=== PATIENT | male | born 1970 | race Caucasian/White ===

== ENCOUNTER → 2017-03-02 | Emergency (ER) | payer BC ==
[~2017-03-02] MED LIST: AMOXICILLIN/CLAVULANATE POT 875/125 MG TAB PO ONE; OXYCODONE/APAP 5/325 TAB PO ONE
--- NOTE | 2017-03-02 14:16 | EDPHY ---
H & P Smoking Status: Never smoked Time Seen by Provider: 03/02/17 13:40 HPI/ROS: CHIEF COMPLAINT: Dog bite right wrist HISTORY OF PRESENT ILLNESS: This is a 47-year-old male presenting to the emergency department complaining of a dog bite to right wrist. Patient states his dogs were fighting each other around 12 30, patient stepped in to try and fluid dog's a republican stuck his hand in to the middle of the dogs and was bit by one of them. States both dogs have all vaccines well-appearing, patient not sure if his tetanus is up-to-date he is declining at this time will follow-up with his primary care provider for tetanus status. REVIEW OF SYSTEMS: Constitutional: No fever, no chills. Eyes: No discharge. ENT: No sore throat. Cardiovascular: No chest pain, no palpitations. Respiratory: No cough, no shortness of breath. Gastrointestinal: No abdominal pain, no vomiting. Genitourinary: No hematuria. Musculoskeletal: No back pain. Right wrist pain, laceration Skin: No rashes. Neurological: No headache. (France Owusu) Physical Exam: General Appearance: Alert and no distress. Eyes: Pupils equal and round no injection. Respiratory: Chest is nontender, lungs are clear to auscultation. Cardiac: regular rate and rhythm Gastrointestinal: Abdomen is soft and nontender, no masses, bowel sounds normal. Musculoskeletal: Neck is supple and nontender. Extremities: Right wrist anteriorly 1 cm laceration noted, anterior medial right wrist laceration 3.5 cm noted. Good flexion and extension of digits, No flexor tendon damage noted. Positive CMS intact Skin: No rashes or lesions. (France Owusu) Constitutional: Initial Vital Signs Temperature (C) 36.6 C 03/02/17 13:17 Heart Rate 58 L 03/02/17 13:17 Respiratory Rate 16 03/02/17 13:17 Blood Pressure 164/101 H 03/02/17 13:17 O2 Sat (%) 97 03/02/17 13:17 O2 Delivery Mode Room Air Allergies/Adverse Reactions: No Known Allergies Allergy (Verified 03/02/17 13:15) Home Medications: Medication Instructions Recorded Amoxicillin/Clavulanate Pot 875 mg PO BID #14 tab 03/02/17 [Augmentin 875 MG TAB (*)] oxyCODONE/APAP 5/325 [Percocet 1 - 2 tab PO Q6H PRN #15 tab 03/02/17 5/325 (*)] Medical Decision Making - Diagnostics Imaging Results: Imaging Impressions Wrist X-Ray 03/02/17 14:11 Impression: Soft tissue injury with subcutaneous emphysema. No fracture identified. Procedures: Procedure: #1 Laceration repair. Verbal consent was obtained from the patient. 1 cm laceration on the anterior right wrist. It 0.5% bupivacaine with epinephrine 3 mL local infiltrate The wound was irrigated. There were no deep structures involved. The wound was repaired 5-0 Ethilon # 6 sutures placed #2 Laceration repair 3.5 cm laceration on the anterior medial right wrist. The wound was irrigated. There were no deep structures involved. The wound was repaired 4-0 Ethilon #8 sutures placed The procedure was performed by myself. A dressing was applied by our EMT. (France Owusu) ED Course/Re-evaluation: Discussed ED plan of care: X-ray right wrist, wound irrigation 1615: The wound repair, dressing placed. Patient tolerated procedure. Discharge home---> stable, discussed all discharge instructions with patient ( [place] Owusu) This patient was evaluated and managed by the nurse practitioner. I have reviewed the chart and agree with the findings and plan of care as documented. ( Daniela Ortiz) Differential Diagnosis: Other differential diagnosis considered but not limited to laceration with tendon involvement, radial fracture, metacarpal fracture and foreign body ( [place] Owusu) - Data Points Medications Given: Discontinued Medications Amoxicillin/Clavulanate Potassium (Augmentin 875mg) 875 mg PO EDNOW ONE PRN Reason: Protocol Stop: 03/02/17 16:18 Last Admin: 03/02/17 16:22 Dose: 875 mg Oxycodone/Acetaminophen (Percocet 5/325) 2 tab PO EDNOW ONE Stop: 03/02/17 14:11 Last Admin: 03/02/17 14:15 Dose: 2 tab Departure - Departure Disposition: Home, Routine, Self-Care Clinical Impression: Dog bite Qualifiers: Encounter type: initial encounter Qualified Code(s): W54.0XXA - Bitten by dog, initial encounter Condition: Good Instructions: Animal Bite (ED), Care For Your Stitches (ED), Laceration (ED) Additional Instructions: 1. We have initial dressing on for 24 hours, then daily dressing changes 2. Take all antibiotics as prescribed. He can also take ibuprofen as needed 600 mg every 6-8 hours 3. Monitor for any signs of infection, such as: Increased redness swelling drainage red streaks fever 4. Have sutures removed in 10 days you can either return here or follow up with your primary care provider 5. Also recommend following up with their primary care provider if your tetanus is up-to-date 6. I recommend no [place] water, river water exposure as this can increase chances for skin infection Referrals: Koby Diaz MD [Primary Care Provider] - As per Instructions Prescriptions: Amoxicillin/Clavulanate Pot [Augmentin 875 MG TAB (*)] 875 mg PO BID #14 tab oxyCODONE/APAP 5/325 [Percocet 5/325 (*)] 1 - 2 tab PO Q6H PRN #15 tab PRN Reason: Pain, Severe
[2017-03-02 16:34] VITALS: BP 149/95; PULSE 96; RESP 18; TEMP 98.2; O2SAT 96
== END | disposition home or self-care (01) ==
PROC: 0HQDXZZ Repair Right Lower Arm Skin, External Approach (ICD-10-PCS; principal; 2017-03-02)
DX: S61.551A Open bite of right wrist, initial encounter (principal); W54.0XXA Bitten by dog, initial encounter

== ENCOUNTER 2017-05-03 18:49 | Emergency (ER) | payer BC ==
[2017-05-03 18:57] VITALS: TEMP 98.1
[2017-05-03 19:34] LABS: COLOR YELLOW; LEUKOCYTE ESTERASE,URINE NEGATIVE (NEGATIVE); NITRITE,URINE NEGATIVE (NEGATIVE)
[2017-05-03 19:52] LABS: RBC,URINE 50-182 /hpf (0-3)
--- NOTE | 2017-05-03 19:57 | EDPHY ---
H & P Stated Complaint: HEMATURIA SINCE YESTERDAY/HX KIDNEY STONES HPI/ROS: CHIEF COMPLAINT: Blood in urine HISTORY OF PRESENT ILLNESS: Patient complains of noting blood in the urine yesterday. He has had 3 episodes of dark urine with 1 episode of bright red spots in the urine. No flank pain. No abdominal pain. No nausea or vomiting. No fever. No discomfort of any kind this time. Concerned his from the appearance of the urine. Does have a history of kidney stones, most recently last year. He has had no complaints other than noticing the blood in the urine. No unexplained weight loss. No anorexia. No lethargy or malaise. No trauma or injury. No use of anticoagulants or any medications. He was seen by Urology in the past for kidney stones that were managed conservatively. No other associated complaints or modifying factors. REVIEW OF SYSTEMS: Ten systems reviewed and are negative unless otherwise noted in the HPI PAST MEDICAL HISTORY: Kidney stones SOCIAL HISTORY: Nonsmoker. No alcohol. Lives in [place] FAMILY HISTORY: Noncontributory EXAMINATION General Appearance: Alert, no distress Head: normocephalic, atraumatic Eyes: Pupils equal and round, no conjunctival pallor or injection ENT, Mouth: Mucous membranes moist Neck: Normal inspection, supple, non-tender Respiratory: Lungs are clear to auscultation. No wheezing or rhonchi or crackles Cardiovascular: Regular rate and rhythm. No murmur. Gastrointestinal: Abdomen is soft and nontender. No distention. No rigidity. No CVA tenderness. Nonacute abdomen. Back: non-tender, no bony abnormalities Neurological: A&O, nonfocal, normal gait Skin: Warm and dry, no rash Extremities: Nontender, no pedal edema Psychiatric: Mood and affect normal DIFFERENTIAL DIAGNOSES: Including but not limited to hematuria, microscopic hematuria, nephrolithiasis, ureterolithiasis, cystitis, renal carcinoma MDM: 7:55 p.m. Microscopic hematuria without gross hematuria at this time. No flank pain. No abdominal pain. No nausea or vomiting. No fever. Vital signs were well within normal limits. Patient has a completely benign abdominal exam. He is comfortable being discharged home at this time. He will follow up with his established urologist with the on-call urologist for outpatient workup of the microscopic hematuria. We discussed return to the emergency department for any flank pain, abdominal pain, nausea, vomiting or fever. He is comfortable with this plan and discharged home stable condition SUPERVISION: Shared visit. Source: Patient Exam Limitations: No limitations - Personal History Current Tetanus/Diphtheria Vaccine: Yes - Medical/Surgical History Hx Asthma: No Hx Chronic Respiratory Disease: No Hx Diabetes: No Hx Cardiac Disease: No Hx Renal Disease: No Hx Cirrhosis: No Hx Alcoholism: No Hx HIV/AIDS: No Hx Splenectomy or Spleen Trauma: No Other PMH: PMH: GOUT, KIDNEY STONES htn. PSH- TONSILECTOMY - Social History Smoking Status: Never smoked Constitutional: Initial Vital Signs Temperature (C) 98.1 F 05/03/17 18:55 Heart Rate 56 L 05/03/17 18:55 Respiratory Rate 18 05/03/17 18:55 Blood Pressure 154/99 H 05/03/17 18:55 O2 Sat (%) 99 05/03/17 18:55 O2 Delivery Mode Room Air Allergies/Adverse Reactions: No Known Allergies Allergy (Verified 05/03/17 18:55) Home Medications: Medication Instructions Recorded NK [No Known Home Meds] 05/03/17 Medical Decision Making - Data Points Laboratory Results: 05/03/17 19:23 Urine Color YELLOW Urine Appearance HAZY Urine pH 6.0 (5.0-7.5) Ur Specific [place] 1.016 (1.002-1.030) Urine Protein NEGATIVE (NEGATIVE) Urine Ketones NEGATIVE (NEGATIVE) Urine Blood 3+ H (NEGATIVE) Urine Nitrate NEGATIVE (NEGATIVE) Urine Bilirubin NEGATIVE (NEGATIVE) Urine Urobilinogen NEGATIVE EU EU (0.2-1.0) Ur Leukocyte Esterase NEGATIVE (NEGATIVE) Urine RBC 50-182 /hpf H /hpf (0-3) Urine WBC 5-10 /hpf H /hpf (0-3) Ur Epithelial Cells NONE SEEN /lpf /lpf (NONE-1+) Urine Glucose NEGATIVE (NEGATIVE) Departure - Departure Disposition: Home, Routine, Self-Care Clinical Impression: Microscopic hematuria Condition: Good Instructions: Hematuria (ED) Additional Instructions: 1. follow up with primary care physician 2. Follow up with Urology 3. Return to the ER for any pain, vomiting, fever, difficulty urinating Referrals: Koby Diaz MD [Primary Care Provider] - As per Instructions Bridger Malcolm MD [Medical Doctor] - As per Instructions Kamron Buenrostro MD [Medical Doctor] - As per Instructions
[2017-05-03 20:19] VITALS: BP 140/92; PULSE 51; RESP 16; O2SAT 98
== END 2017-05-03 20:18 | disposition home or self-care (01) ==
DX: R31.29 Other microscopic hematuria (principal); I10 Essential (primary) hypertension

== ENCOUNTER 2017-05-08 13:05 | Emergency (ER) | payer BC ==
[2017-05-08 13:12] VITALS: BP 131/92; PULSE 63; RESP 16; TEMP 97.7; O2SAT 95
[2017-05-08] MEDS ORDERED: NS 1,000 ML IV ONE (13:32)
[2017-05-08 13:36] LABS: COLOR YELLOW; LEUKOCYTE ESTERASE,URINE NEGATIVE (NEGATIVE); NITRITE,URINE NEGATIVE (NEGATIVE)
[2017-05-08 13:37] LABS: BACTERIA 2+ /hpf (NONE SEEN); RBC,URINE 50-182 /hpf (0-3)
--- NOTE | 2017-05-08 13:56 | EDPHY ---
H & P Time Seen by Provider: 05/08/17 13:26 HPI/ROS: HPI: This is a 47-year-old male who presents with Chief Complaint: Blood in urine Location: Quality: Blood in urine Duration: 6 days Signs and Symptoms: No groin pain, no penile discharge, no testicular pain, no nausea, no vomiting, no fevers, no diarrhea Timing: Intermittent Severity: Moderate Context: Patient reports that he has noticed blood in his urine alternating with dark urine for the last 6 days. Reports the blood as clots. Patient was seen here on 05/03/2017 in advised follow-up with Urology. Patient admits that he has been working last several days and did not follow up as directed. He returns today to the ER as he has developed over the last 1 day left lower quadrant and left flank pain. He does have a history of kidney stones in the past. The remaining aged conservatively as well as the required admission but no stent lithotripsy was needed. Denies any trauma or injury. Eating and drinking without difficulty. Having normal bowel movements. He reports that he has annual physical exam 2 years ago with normal PSA level. Modifying Factors: Comment: ROS: Eyes: No blurred vision Respiratory: No shortness of breath, no cough Cardiovascular: No chest pain Gastrointestinal: No nausea, no vomiting no diarrhea Genitourinary: No dysuria Extremities: No myalgias Neurologic: No weakness, no numbness Skin: No rashes Hematologic: No bruising, no bleeding MEDICAL/SURGICAL HISTORY: Kidney stone. Denies any surgical history. Social History: Denies alcohol use. Nonsmoker. Smoking Status: Never smoked Physical Exam: CONSTITUTIONAL: Adult well-appearing male, awake and alert, no obvious distress HEENT: Atraumatic and normocephalic, PERRL, EOMI. Tympanic membranes clear. . Oropharynx clear, no exudate and moist pink mucosa. Airway patent. No lymphadenopathy. No meningismus. Cardiovascular: Normal S1/S2, regular rate, regular rhythm, without murmur rub or gallop. PULMONARY/CHEST: Symmetrical and nontender. Clear to auscultation bilaterally Good air movement. No accessory muscle usage. ABDOMEN: Soft, nondistended, LLQ tenderness, no rebound, no guarding, no peritoneal signs, no masses or organomegaly. No CVAT. Bowel sounds heard. EXTREMITIES: 2/2 pulses, no deformities, no clubbing, no cyanosis or edema. NEUROLOGICAL: no focal neuro deficits. GCS 15. SKIN: Warm and dry, no erythema. no rash. Good capillary refill. Constitutional: Initial Vital Signs Temperature (C) 36.5 C 05/08/17 13:10 Heart Rate 63 05/08/17 13:10 Respiratory Rate 16 05/08/17 13:10 Blood Pressure 131/92 H 05/08/17 13:10 O2 Sat (%) 95 05/08/17 13:10 O2 Delivery Mode Room Air Allergies/Adverse Reactions: No Known Allergies Allergy (Verified 05/08/17 13:09) Home Medications: Medication Instructions Recorded Hydrocodone/APAP 5/325 [[place]ammon 1 - 2 tab PO Q4H PRN #10 tab 05/08/17 5/325 (*)] Ketorolac Tromethamine [Toradol] 10 mg PO Q6H PRN #16 tab 05/08/17 Tamsulosin HCl [Flomax 0.4 MG (*)] 0.4 mg PO DAILY #7 cap 05/08/17 Medical Decision Making - Diagnostics Imaging Results: Imaging Impressions Abdomen/Pelvis CT 05/08/17 13:52 Impression: 1. 6-mm stone in the distal right ureter, 7 cm above the ureterovesical junction , without significant obstructive uropathy, with mild stranding adjacent to the stone that could be related to inflammation 2. Bilateral nephrolithiasis. 3. Constipation 4. Additional findings as above. Findings discussed with Shadia Thompson PA-C on May 08, 2017 at 1453 hours. Attention: This CT examination is specifically designed to evaluate patients who are clinically suspected of having acute obstructive uropathy. This examination does not use radiographic contrast, and as such, provides only a limited evaluation of the abdomen, pelvis and retroperitoneum. If there is further clinical suspicion for pathological conditions other than obstructive uropathy, a complete CT evaluation of the abdomen and pelvis utilizing intravenous and oral contrast should be considered. ED Course/Re-evaluation: Labs, urinalysis, IV fluids, IV Toradol, CT A/P scan ordered Will start with CT abdominal and pelvis scan without contrast and if no kidney stones seen will give contrast to evaluate for diverticulitis/renal mass UA shows WBC, bacteria, RBC; sent for urine culture; IV Rocephin given for antibiotic 24 hour prophylaxis 1445: Called by Radiology and notified patient had 6 mm right ureteral stone approximately 7 cm above the bladder with no hydronephrosis. P.o. Flomax given. Patient reports that he has an appointment with [facility] for Monday Tolerating p.o. patient and well versed in kidney stones and conservative management. Differential Diagnosis: Flank pain including but not limited to musculoskeletal causes, kidney stone, pyelonephritis, shingles, and intra-abdominal causes such as diverticulitis and appendicitis. - Data Points Laboratory Results: Laboratory Results 05/08/17 13:45 05/08/17 13:45 05/08/17 05/08/17 05/08/17 13:47 13:45 13:45 WBC 6.70 10^3/uL 10^3/uL (3.80-9.50) RBC 4.94 10^6/uL 10^6/uL (4.40-6.38) Hgb 15.9 g/dL g/dL (13.7-17.5) POC Hgb 16.3 gm/dL gm/dL (13.7-17.5) Hct 45.8 % % (40.0-51.0) POC Hct 48 % % (40-51) MCV 92.7 fL fL (81.5-99.8) MCH 32.2 pg pg (27.9-34.1) MCHC 34.7 g/dL g/dL (32.4-36.7) RDW 12.3 % % (11.5-15.2) Plt Count 301 10^3/uL 10^3/uL (150-400) MPV 9.2 fL fL (8.7-11.7) Neut % (Auto) 61.5 % % (39.3-74.2) Lymph % (Auto) 28.5 % % (15.0-45.0) [place] % (Auto) 5.7 % % (4.5-13.0) Eos % (Auto) 3.0 % % (0.6-7.6) Baso % (Auto) 0.9 % % (0.3-1.7) Nucleat RBC Rel Count 0.0 % % (0.0-0.2) Absolute Neuts (auto) 4.12 10^3/uL 10^3/uL (1.70-6.50) Absolute Lymphs (auto) 1.91 10^3/uL 10^3/uL (1.00-3.00) Absolute Monos (auto) 0.38 10^3/uL 10^3/uL (0.30-0.80) Absolute Eos (auto) 0.20 10^3/uL 10^3/uL (0.03-0.40) Absolute Basos (auto) 0.06 10^3/uL 10^3/uL (0.02-0.10) Absolute Nucleated RBC 0.00 10^3/uL 10^3/uL (0-0.01) Immature Gran % 0.4 % % (0.0-1.1) Immature Gran # 0.03 10^3/uL 10^3/uL (0.00-0.10) POC Sodium 141 mEq/L mEq/L (134-144) Sodium 140 mEq/L mEq/L (134-144) POC Potassium 4.6 mEq/L mEq/L (3.3-5.0) Potassium 4.9 mEq/L mEq/L (3.5-5.2) POC Chloride 105 mEq/L mEq/L (97-110) Chloride 107 mEq/L mEq/L (97-110) Carbon Dioxide 20 mEq/l L mEq/l (22-31) Anion Gap 13 mEq/L mEq/L (8-16) POC BUN 14 mg/dL mg/dL (7-23) BUN 14 mg/dL mg/dL (7-23) Creatinine 1.1 mg/dL mg/dL (0.7-1.3) POC Creatinine 1.2 mg/dL mg/dL (0.7-1.3) Estimated GFR > 60 Glucose 85 mg/dL mg/dL (70-100) POC Glucose 87 mg/dL mg/dL (70-100) Calcium 9.7 mg/dL mg/dL (8.5-10.4) Urine Color Urine Appearance Urine pH Ur Specific [place] Urine Protein Urine Ketones Urine Blood Urine Nitrate Urine Bilirubin Urine Urobilinogen Ur Leukocyte Esterase Urine RBC Urine WBC Ur Epithelial Cells Urine Bacteria Urine Glucose 05/08/17 13:25 WBC RBC Hgb POC Hgb Hct POC Hct MCV MCH MCHC RDW Plt Count MPV Neut % (Auto) Lymph % (Auto) [place] % (Auto) Eos % (Auto) Baso % (Auto) Nucleat RBC Rel Count Absolute Neuts (auto) Absolute Lymphs (auto) Absolute Monos (auto) Absolute Eos (auto) Absolute Basos (auto) Absolute Nucleated RBC Immature Gran % Immature Gran # POC Sodium Sodium POC Potassium Potassium POC Chloride Chloride Carbon Dioxide Anion Gap POC BUN BUN Creatinine POC Creatinine Estimated GFR Glucose POC Glucose Calcium Urine Color YELLOW Urine Appearance MODERATELY TURBID Urine pH 6.0 (5.0-7.5) Ur Specific [place] 1.012 (1.002-1.030) Urine Protein 1+ H (NEGATIVE) Urine Ketones NEGATIVE (NEGATIVE) Urine Blood 3+ H (NEGATIVE) Urine Nitrate NEGATIVE (NEGATIVE) Urine Bilirubin NEGATIVE (NEGATIVE) Urine Urobilinogen NEGATIVE EU EU (0.2-1.0) Ur Leukocyte Esterase NEGATIVE (NEGATIVE) Urine RBC 50-182 /hpf H /hpf (0-3) Urine WBC 10-15 /hpf H /hpf (0-3) Ur Epithelial Cells NONE SEEN /lpf /lpf (NONE-1+) Urine Bacteria 2+ /hpf H /hpf (NONE SEEN) Urine Glucose NEGATIVE (NEGATIVE) Medications Given: Discontinued Medications Sodium Chloride (Ns) 1,000 mls @ 0 mls/hr IV ONCE ONE; Wide Open PRN Reason: Protocol Stop: 05/08/17 13:33 Last Admin: 05/08/17 13:45 Dose: 1,000 mls Ceftriaxone Sodium/Dextrose (Rocephin 1 Gm (Premix)) 50 mls @ 100 mls/hr IV EDNOW ONE PRN Reason: Protocol Stop: 05/08/17 15:25 Last Admin: 05/08/17 15:10 Dose: 50 mls Ketorolac Tromethamine (Toradol) 30 mg IVP EDNOW ONE Stop: 05/08/17 14:55 Last Admin: 05/08/17 15:10 Dose: 30 mg Tamsulosin HCl (Flomax) 0.4 mg PO EDNOW ONE Stop: 05/08/17 14:55 Last Admin: 05/08/17 15:10 Dose: 0.4 mg Point of Care Test Results: 05/08/17 13:47 POC Sodium 141 POC Potassium 4.6 POC Chloride 105 POC BUN 14 POC Creatinine 1.2 POC Glucose 87 Departure - Departure Disposition: Home, Routine, Self-Care Clinical Impression: Kidney stone on right side, Renal colic on right side Condition: Good Instructions: Kidney Stones (ED), Renal Colic (ED) Additional Instructions: Follow-up with Urology at [facility] on Monday as already scheduled. Referrals: Koby Diaz MD [Primary Care Provider] - As per Instructions Prescriptions: Hydrocodone/APAP 5/325 [Scammon 5/325 (*)] 1 - 2 tab PO Q4H PRN #10 tab PRN Reason: Pain, Severe Ketorolac Tromethamine [Toradol] 10 mg PO Q6H PRN #16 tab PRN Reason: Pain, Moderate Tamsulosin HCl [Flomax 0.4 MG (*)] 0.4 mg PO DAILY #7 cap
[2017-05-08 14:17] LABS: % IMMATURE GRANULYOCYTES 0.4 % (0.0-1.1); ABSOLUTE IMMATURE GRANULOCYTES 0.03 10^3/uL (0.00-0.10); ADD DIFF? NO; ADD MORPH? NO; ADD SCAN? NO; ATYPICAL LYMPHOCYTE FLAG 10 (0-99); FRAGMENT RBC FLAG 0 (0-99); HEMATOCRIT 45.8 % (40.0-51.0); HEMOGLOBIN 15.9 g/dL (13.7-17.5); LEFT SHIFT FLG 0 (0-99); LIPEMIA HEMOLYSIS FLAG 90 (0-99); MEAN CELL HEMOGLOBIN 32.2 pg (27.9-34.1); MEAN CELL HEMOGLOBIN CONCENTR. 34.7 g/dL (32.4-36.7); MEAN CELL VOLUME 92.7 fL (81.5-99.8); MEAN PLATELET VOLUME 9.2 fL (8.7-11.7); PLATELET CLUMPS FLAG 0 (0-99); PLATELET COUNT 301 10^3/uL (150-400); RED BLOOD CELL COUNT 4.94 10^6/uL (4.40-6.38); RED CELL DISTRIBUTION WIDTH 12.3 % (11.5-15.2)
[2017-05-08 14:35] LABS: ANION GAP 13 mEq/L (8-16); CALCIUM 9.7 mg/dL (8.5-10.4); CARBON DIOXIDE 20 mEq/l (22-31); CHLORIDE 107 mEq/L (97-110); CREATININE 1.1 mg/dL (0.7-1.3); GLOMERULAR FILTRATION RATE > 60; GLUCOSE 85 mg/dL (70-100); POTASSIUM 4.9 mEq/L (3.5-5.2); SODIUM 140 mEq/L (134-144)
[2017-05-08] MEDS ORDERED: KETOROLAC 30 MG/1 ML SDV IVP ONE (14:54)
[2017-05-08] MEDS ORDERED: TAMSULOSIN HCL 0.4 MG CAP PO ONE (14:54)
== END 2017-05-08 15:45 | disposition home or self-care (01) ==
DX: N20.0 Calculus of kidney (principal); E86.9 Volume depletion, unspecified
CPT/HCPCS: 82947-QW; 96365; J0696; J1885